=== PATIENT | female | born 1950 | race Caucasian/White ===

== ENCOUNTER 2018-10-07 15:13 | Emergency (ER) | payer OTHER ==
[2018-10-07 15:43] VITALS: BP 130/85; PULSE 76; TEMP 98.2; BMI 24.2
--- NOTE | 2018-10-07 15:43 | PDOC ---
Rapid Medical Evaluation Medical Evaluation: I have performed a brief in-person evaluation of this patient. The patient presents with a chief complaint of: Hx of RA, vestibulopathy, hysterectomy; epigastric pain radiating to back from yesterday; +nausea; denies vomiting, diarrhea, cp,sob; sent from for further eval Pertinent physical exam findings: In NAD, mild epigastric tenderness I have ordered the following: labs, EKG, pepcid The patient will proceed to the ED for further evaluation. 10/07/18 15:39 Discharge Disposition - Discharge Dispostion Condition at time of disposition: Stable - Referrals - Patient Instructions - Post Discharge Activity
[2018-10-07] MEDS ORDERED: FAMOTIDINE 20 MG/50 ML IVPB 20 MG/50 ML MG IVPB ONE ×2 (15:44→17:25)
[2018-10-07 16:15] LABS: BASO % 0.4 % (0-2.0); EOS % 0.6 % (0-4.5); HEMATOCRIT 38.3 % (32.4-45.2); HEMOGLOBIN 12.9 GM/dL (10.7-15.3); LYMPH % 26.6 % (8-40); MCHC 33.6 g/dl (32.0-36.0); MEAN PLT VOLUME 8.9 fl (7.5-11.1); MONO % 16.8 % (3.8-10.2); NEUT % 55.6 % (42.8-82.8); PLATELET COUNT 186 K/MM3 (134-434); RBC 4.16 M/mm3 (3.60-5.2); RDW 14.7 % (11.6-15.6); WHITE BLOOD COUNT 3.3 K/mm3 (4.0-10.0)
[2018-10-07 16:46] LABS: LIPASE 135 U/L (73-393)
[2018-10-07 17:28] LABS: ALK PHOS 61 U/L (45-117); ANION GAP 4 MMOL/L (8-16); BILIRUBIN,TOTAL 0.4 mg/dL (0.2-1); BLOOD UREA NITROGEN 16 mg/dL (7-18); CALCIUM 8.9 mg/dL (8.5-10.1); CHLORIDE 102 mmol/L (98-107); CO2 31 mmol/L (21-32); CREATININE 0.8 mg/dL (0.55-1.3); GLUCOSE,RANDOM 93 mg/dL (74-106); POTASSIUM 4.2 mmol/L (3.5-5.1); SGOT/AST 36 U/L (15-37); SGPT/ALT 39 U/L (13-61); SODIUM 137 mmol/L (136-145)
--- NOTE | 2018-10-07 18:09 | PDOC ---
Attending Attestation - Resident Resident Name: Uriel Vieyra - ED Attending Attestation I have performed the following: I have examined & evaluated the patient, The case was reviewed & discussed with the resident, I agree w/resident's findings & plan, Exceptions are as noted - HPI HPI: 10/07/18 18:09 68 uo female with RUQ pain - Physicial Exam PE: 10/07/18 23:33 wnwd 68 yo female with upper abd discomfort head ncat neck supple lungs cta b/l cvs [id number] abd no rebound,no guarding,epigastric tenderness ext no edema,no clubbing, no cyanosis skin warm and dry neuro axox3,no focal neuro deficits - Medical Decision Making 10/07/18 18:11 labs ,both cbc and chemistries are wnl stable vital signs no rebound or guarding on abdominal exam 10/07/18 18:52 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
--- NOTE | 2018-10-07 18:40 | PDOC ---
History of Present Illness - General Chief Complaint: Pain, Acute Stated Complaint: R/O GASTRO Time Seen by Provider: 10/07/18 15:39 History Source: Patient Exam Limitations: No Limitations - History of Present Illness Initial Comments: 10/07/18 18:34 Patient is a 68F with history of RA and vestibular neuropathy 2/2 brain tumor and removal here today complaining of abdominal pain that started yesterday. She states that it was worse yesterday and improved today, but came in after being evaluated in urgent care for further imaging. Endorses nausea, denies vomiting, fevers, chills. She states that the pain is a cramping pain that radiates to her back. Denies dysuria. No prior surgical history. Tested for UTI at , negative. Past History - Past Medical History Allergies/Adverse Reactions: Allergies Allergy/AdvReac Type Severity Reaction Status Date / Time No Known Allergies Allergy Verified 10/07/18 15:43 COPD: No Other medical history: RA, BRAIN TUMOR REMOVED- - Immunization History Immunization Up to Date: No - Suicide/Smoking/Psychosocial Hx Smoking History: Never smoked Have you smoked in the past 12 months: No Information on smoking cessation initiated: No Hx Alcohol Use: No Drug/Substance Use Hx: No Review of Systems - Review of Systems Comments:: 10/07/18 18:39 GENERAL/CONSTITUTIONAL: No fever or chills. No weakness. HEAD, EYES, EARS, NOSE AND THROAT: No change in vision. No sore throat. CARDIOVASCULAR: No chest pain or shortness of breath RESPIRATORY: No cough, wheezing, or hemoptysis. GASTROINTESTINAL: +nausea, no vomiting, diarrhea or constipation. GENITOURINARY: No dysuria, frequency, or change in urination. MUSCULOSKELETAL: No joint or muscle swelling or pain. No neck or back pain. SKIN: No rash NEUROLOGIC: No headache, vertigo, loss of consciousness, or change in strength/ sensation. HEMATOLOGIC/LYMPHATIC: No anemia, easy bleeding, or history of blood clots. ALLERGIC/IMMUNOLOGIC: No hives or skin allergy. *Physical Exam - Vital Signs Last Vital Signs Temp Pulse Resp BP Pulse Ox 98.2 F 76 16 130/85 99 10/07/18 15:40 10/07/18 15:40 10/07/18 15:40 10/07/18 15:40 10/07/18 15:40 - Physical Exam Comments: 10/07/18 18:40 GENERAL: Awake, alert, and fully oriented, in no acute distress HEAD: No signs of trauma, normocephalic, atraumatic EYES: PERRLA, EOMI, sclera anicteric, conjunctiva clear ENT: Auricles normal inspection, hearing grossly normal, nares patent, oropharynx clear without exudates. Moist mucosa NECK: Normal ROM, supple, no lymphadenopathy, JVD, or masses LUNGS: No distress, speaks full sentences, clear to auscultation bilaterally HEART: Regular rate and rhythm, normal S1 and S2, no murmurs, rubs or gallops, peripheral pulses normal and equal bilaterally. ABDOMEN: Soft, +RUQ and epigastric abdominal pain, normoactive bowel sounds. No guarding, no rebound. No masses EXTREMITIES: Normal inspection, Normal range of motion, no edema. No clubbing or cyanosis. NEUROLOGICAL: Cranial nerves II through XII grossly intact. Normal speech, normal gait, no focal sensorimotor deficits SKIN: Warm, Dry, normal turgor, no rashes or lesions noted. Moderate Sedation - Procedure Monitoring Vital Signs: Procedure Monitoring Vital Signs Temperature 98.2 F 10/07/18 15:40 Pulse Rate 76 10/07/18 15:40 Respiratory Rate 16 10/07/18 15:40 Blood Pressure 130/85 10/07/18 15:40 O2 Sat by Pulse Oximetry (%) 99 10/07/18 15:40 ED Treatment Course - LABORATORY CBC & Chemistry Diagram: 10/07/18 16:03 10/07/18 16:02 - ADDITIONAL ORDERS Additional order review: Laboratory Results 10/07/18 10/07/18 16:02 16:02 Sodium Cancelled 137 Potassium Cancelled 4.2 Chloride Cancelled 102 Carbon Dioxide Cancelled 31 Anion Gap Cancelled 4 L BUN Cancelled 16 Creatinine Cancelled 0.8 Creat Clearance w eGFR Cancelled > 60 Random Glucose Cancelled 93 Calcium Cancelled 8.9 Total Bilirubin Cancelled 0.4 AST Cancelled 36 ALT Cancelled 39 Alkaline Phosphatase Cancelled 61 Troponin I < 0.02 Total Protein Cancelled 7.0 Albumin Cancelled 4.0 Lipase 135 10/07/18 16:03 RBC 4.16 MCV 92.0 MCHC 33.6 RDW 14.7 MPV 8.9 Neutrophils % 55.6 Lymphocytes % 26.6 Monocytes % 16.8 H Eosinophils % 0.6 Basophils % 0.4 - RADIOLOGY Radiology Studies Ordered: Category Date Time Status ABDOMEN US -LIMITED [US] Stat Ultrasound 10/07/18 17:28 Ordered - Medications Given in the ED: ED Medications Discontinued Medications Generic Name Dose Route Start Last Admin Trade Name Freq PRN Reason Stop Dose Admin Famotidine/Sodium Chloride 20 mg in 50 mls @ 100 mls/hr 10/07/18 15:44 17:39 Pepcid 20 Mg Premixed Ivpb - IVPB 10/07/18 16:13 100 mls/hr ONCE ONE Administration Medical Decision Making - Medical Decision Making 10/07/18 18:40 Patient is 68F with history of RA and brain tumor s/p removal here today with RUQ abdominal pain. Vitals normal and stable. DDx includes, but is not limited to: UTI, gastritis, pancreatitis, cholecystitis. 10/07/18 23:30 CBC normal. CMP reassuring. US normal. CT done because during reassessment patient had pain in LLQ. CT clear. Pain improved, but still reports some pain. Nontender on reassessment. Tolerating PO. Given return precautions. Will discharge home. *DC/Admit/Observation/Transfer Diagnosis at time of Disposition: Abdominal pain - Discharge Dispostion Disposition: HOME Condition at time of disposition: Stable Decision to Admit order: No - Referrals Referrals: ON STAFF,NOT [Primary Care Provider] - - Patient Instructions Printed Discharge Instructions: DI for Abdominal Pain-Adult Additional Instructions: Please return to the ED immediately if you have any new, worsening or concerning symptoms, especially fever, increasing pain, and vomiting. Please follow up with your primary care doctor this week. - Post Discharge Activity
--- NOTE | 2018-10-08 16:31 | EKG ---
Test Reason : Blood Pressure : / mmHG Vent. Rate : 066 BPM Atrial Rate : 066 BPM P-R Int : 168 ms QRS Dur : 088 ms QT Int : 416 ms P-R-T Axes : 039 -23 034 degrees QTc Int : 436 ms NORMAL SINUS RHYTHM MINIMAL VOLTAGE CRITERIA FOR LVH, MAY BE NORMAL VARIANT BORDERLINE ECG NO PREVIOUS ECGS AVAILABLE Confirmed by Rudolph Estrada ([id number]) on 10/08/2018 4:31:01 PM Referred By: Confirmed By:Rudolph Estrada
== END 2018-10-07 23:50 | disposition home or self-care (01) ==
LOC: JER 15:13
PROC: 3E033GC Introduction of Other Therapeutic Substance into Peripheral Vein, Percutaneous Approach (ICD-10-PCS; principal; 2018-10-07)
DX: R10.9 Unspecified abdominal pain (principal); M06.9 Rheumatoid arthritis, unspecified; Z86.011 Personal history of benign neoplasm of the brain; H81.8X9 Other disorders of vestibular function, unspecified ear
CPT/HCPCS: 36415; 74177-TC; 76705-TC; 80053; 83690; 84484; 85025; 93005; 93010; 96365; 99283-25